=== PATIENT | female | born 1990 | race Two or more races ===

== ENCOUNTER 2025-04-02 17:55 | Emergency (ER) | payer BC ==
[~2025-04-02] VITALS: Ht 172.7 cm; Wt 49.9 kg
[2025-04-02] MEDS ORDERED: ONDANSETRON HCL 2 MG/ML VIAL IV STA (18:14)
[2025-04-02] MEDS ORDERED: 0.9 % SODIUM CHLORIDE 1,000 ML IV STA (18:14)
[2025-04-02 18:49] LABS: BASO % 0.1 % (0.1-1.2); EOS # 0.00 (0.04-0.54); EOS % 0.0 % (0.7-7.0); LYMPH # 1.40 (1.18-3.74); LYMPH % 17.5 % (19.3-53.1); MEAN PLATELET VOLUME 9.70 fl (9.4-12.4); MONO # 0.76 (0.24-0.82); MONO % 9.5 % (4.7-12.5); NEUT # 5.79 (1.56-6.13); NEUT % 72.6 % (34.0-71.1); RED CELL DISTRIBUTION WIDTH 14.3 % (11.6-14.4)
[2025-04-02 19:22] LABS: BUN CREA RATIO 21.0 (7.0-25.0); CREATININE SERUM 0.75 mg/dL (0.55-1.02); GFR 87.43; GLUCOSE FASTING 119.0 mg/dL (65-100); OSMOLALITY SERUM 282.0 MOSM/KG (275-295)
== END 2025-04-02 22:45 | disposition home or self-care (01) ==
LOC: ER 17:55
PROVIDERS: Emergency Medicine
DX: K29.70 Gastritis, unspecified, without bleeding (principal)

== ENCOUNTER 2025-04-04 07:51 | Emergency (ER) | payer BC ==
[~2025-04-04] VITALS: Ht 172.7 cm; Wt 54.4 kg
[2025-04-04] MEDS ORDERED: ONDANSETRON HCL 2 MG/ML VIAL IV STA (08:13)
[2025-04-04] MEDS ORDERED: 0.9 % SODIUM CHLORIDE 1,000 ML IV STA (08:13)
[2025-04-04 09:01] LABS: BASO % 0.2 % (0.1-1.2); EOS # 0.01 (0.04-0.54); EOS % 0.2 % (0.7-7.0); LYMPH # 1.38 (1.18-3.74); LYMPH % 25.2 % (19.3-53.1); MEAN PLATELET VOLUME 9.80 fl (9.4-12.4); MONO # 0.52 (0.24-0.82); MONO % 9.5 % (4.7-12.5); NEUT # 3.54 (1.56-6.13); NEUT % 64.5 % (34.0-71.1); RED CELL DISTRIBUTION WIDTH 14.1 % (11.6-14.4)
[2025-04-04 09:30] LABS: ALT/SGPT 40.0 U/L (12-78); AST/SGOT 27.0 U/L (15-37); BILIRUBIN TOTAL 0.56 mg/dL (0.3-1.2); BUN CREA RATIO 24.0 (7.0-25.0); CREATININE SERUM 0.67 mg/dL (0.55-1.02); GFR 99.59; GLOBULINA 3.4 G/DL (2.4-3.5); GLUCOSE FASTING 95.0 mg/dL (65-100); OSMOLALITY SERUM 279.0 MOSM/KG (275-295)
[2025-04-04] MEDS ORDERED: POTASSIUM CHLORIDE/D5-0.9%NACL 1,000 ML IV ONE (09:45)
[2025-04-04 16:06] LABS: URINE APPEARANCE Turbid; URINE BILIRRUBIN Negative (NEGATIVE); URINE BLOOD Negative; URINE COLOR Yellow; URINE GLUCOSE Negative (NEGATIVE); URINE LEUKOCYTE Negative; URINE NITRATE Negative; URINE PROTEIN 30 (NEGATIVE); URINE UROBILINOGEN 1.0 E.U./dl
[2025-04-04 16:10] LABS: URINE BACTERIA 2625.5 uL (0.0-1933); URINE EPITHELIAL CELLS 81.8 uL (0.0-38.8); URINE RBC 13.9 uL (0.0-20.8); URINE WBC 26.6 uL (0.0-23.2)
[2025-04-04 16:29] LABS: TYPE CELLS SQUAMOUS; URINE CAST 0.58 uL (0.0-1.40); URINE CRYSTALS MODERATE /HPF; URINE KETONE 80 (NEGATIVE); URINE MUCUS SCANT
== END 2025-04-04 19:18 | disposition left against medical advice (07) ==
LOC: ER 07:51
PROVIDERS: Emergency Medicine
DX: K29.70 Gastritis, unspecified, without bleeding (principal)